=== PATIENT | female | born 1950 | race Caucasian/White ===

== ENCOUNTER → 2020-05-07 | Day surgery (SDC) | payer OTHER, BC ==
--- NOTE | 2020-05-10 09:28 | OP ---
DATE OF OPERATION: 05/07/2020 PREOPERATIVE DIAGNOSIS: Left axillary adenopathy. POSTOPERATIVE DIAGNOSIS: Left axillary adenopathy. PROCEDURE: Left axillary ultrasound-guided core biopsy of lymph node. ANESTHESIA: Local. ATTENDING SURGEON: Maxime Han MD ESTIMATED BLOOD LOSS: Minimal. COMPLICATIONS: None. PROCEDURE: Patient was made aware of the risks and benefits of the procedure and consented. She was placed in the supine position. Under sterile conditions with 2% lidocaine for local anesthesia a small fidencio was made in the skin. Using a 13-gauge suction biopsy device through inferolateral approach under ultrasound guidance multiple cores were obtained and submitted to Pathology. Likewise, under ultrasound guidance a HydroMARK open coil clip was placed into the lymph node. This was well tolerated by patient. Steri-Strip and sterile bandage were applied. We will contact her with the results. MAXIME HAN M.D. [id number]
--- NOTE | 2020-05-11 15:51 | PATH ---
Surgical Pathology Report Patient Name: HELENA GONZALES [facility]. Rec. #: [id number] /Age/Gender: 1950 (Age: 69) / F Account: [id number] Location: [facility] RADIOLOGY U Taken: 05/07/2020 Received: 05/07/2020 Reported: 05/11/2020 Physicians: Shreyas Avina M.D. Specimen(s) Received LEFT AXILLARY LYMPH NODE CORE BIOPSY Clinical History Non-palpable lesion Final Diagnosis AXILLARY LYMPH NODE, LEFT, CORE BIOPSY: LYMPHOID TISSUE NEGATIVE FOR CARCINOMA ON H&E AND CONFIRMED BY AE1/3 IMMUNOHISTOCHEMICAL STAIN. Comment: Prior history of left breast carcinoma noted. Positive and negative controls (internal if applicable) show appropriate results. Electronically Signed Yaritza Villavicencio M.D. Gross Description Received in formalin, labeled "left axillary lymph node" are five cores of dark and yellow-méndez tissue, ranging from 1-2.3 cm in length with a diameter up to 0.2 cm. Specimen is entirely submitted in two cassettes. Time to formalin fixation.: <1 minute Total formalin fixation time: Approximately 6 hours AE/05/07/2020 ebram/05/07/2020
== END | disposition home or self-care (01) ==
LOC: FRADUS-SUR 13:31
PROVIDERS: ATTEND Surgery Surgical Oncology
PROC: 07B63ZX Excision of Left Axillary Lymphatic, Percutaneous Approach, Diagnostic (ICD-10-PCS; principal; 2020-05-07)
PROC: BH41ZZZ Ultrasonography of Left Breast (ICD-10-PCS; 2020-05-07)
DX: R59.0 Localized enlarged lymph nodes (principal)
CPT/HCPCS: 76942-TC; 87899; 88305-TC; 88342-TC; A4648